=== PATIENT | male | born 1940 | race Caucasian/White ===

== ENCOUNTER 2018-07-02 08:14 | Observation (INO) ==
[2018-07-02] MEDS ORDERED: Naloxone 0.4 MG/ML INJ IVP PRN (11:03)
--- NOTE | 2018-07-02 13:28 | Internal Med History&Physical ---
Date of Encounter: 07/02/18 Time of Encounter: 13:00 Internal Medicine - H&P: HPI Chief complaint: Witnessed seizure History of present illness: Mr. 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 His notes around 4am, she woke up next to him and observed him with his eyes closed and both arms shaking across the chest. This went on for like 10minutes, and he was unresponsive and unarousable during this episode. After the episode , he was confused and was unable to recall the event. Denies any tongue biting or urinary or fecal incontinence. She also notes that for about a week, he has been having frequent runny to loose stools. He recently completed a course of chemotherapy for his esophageal adenocarcinoma. He went to [facility] ER, where he was also noted to be pancytopenic. He got one dose of vancomycin and was loaded with Keppra and transferred here for further management Past Med Surg Social Fam HX - Past Medical History Medical history: arthritis, cancer, COPD, hypertension, liver disease Additional medical history: IVC FILTER Psychiatric history: no psych history - Past Surgical History Surgical History: herniorrhaphy, splenectomy, other Additional surgical history: TURP - Social History Smoking Status: Former smoker Smokeless Tobacco Status: No Alcohol use: none Drug use: none Internal Medicine - H&P: Meds HYDROcodone/Acet 5/325 mg [[place] 5-325 mg] 1 tab PO Q4HR PRN 07/02/18 [History] Nadolol 10 mg PO QPM 07/02/18 [History] Simethicone [Gas-X] 80 mg PO TID PRN 07/02/18 [History] 3 Allergy/AdvReac Type Severity Reaction Status Date / Time aspirin [ASA] AdvReac See Verified 07/02/18 17:42 Comments Warfarin [From Coumadin] AdvReac See Verified 07/02/18 17:42 Comments All Systems PM: A 10-system review of systems was performed and is negative for pertinent findings except as documented above in the HPI. - Constitutional Constitutional: no chills, no fever(s), no night sweats - EENT Eyes: no change in vision, no discharge, no pain, no photophobia Ears: no ear discharge, no ear pain, no tinnitus Nose, mouth and throat: no dysphagia, no nasal discharge, no neck pain, no sore throat - Cardiovascular Cardiovascular ROS IM: no chest pain, no diaphoresis, no dyspnea, no lightheadedness, no palpitations, no syncope - Respiratory Respiratory: no cough, no dyspnea, no wheezing, no excessive phlegm production - Gastrointestinal Gastrointestinal: diarrhea, no abdominal pain, no hematemesis, no hematochezia, no melena, no nausea, no vomiting - Musculoskeletal Musculoskeletal ROS IM: no numbness, no tingling - Integumentary Integumentary IM: no rash, no unusual bruising - Neurological Neurological ROS: confusion, no convulsions, no focal weakness, no numbness, no tingling, no tremor(s) - Hematologic/Lymphatic Hematologic/Lymphatic: no easy bruising - Constitutional Vitals: Pulse Resp BP Pulse Ox 83 17 130/79 96 07/02/18 10:31 07/02/18 10:31 07/02/18 10:31 07/02/18 10:31 General appearance: Present: cachectic, underweight Exam: NAD. Cachectic elderly male - Head Head exam: Present: atraumatic, normocephalic - Eye Eye exam: Present: PERRL, conjuntiva pink, sclera anicteric Pupils: Present: PERRL - Neck Neck exam general surgery: Present: supple, trachea midline. Absent: lymphadenopathy - Respiratory Respiratory exam: Present: CTAB. Absent: accessory muscle use, rales, rhonchi, wheezes - Cardiovascular Cardiovascular exam: Present: RRR, +S1, +S2. Absent: diastolic murmur, gallop, rubs, systolic murmur - GI/Abdominal GI/Abdominal exam: Present: normal bowel sounds, soft, no peritoneal signs. Absent: distended, tenderness - Extremities Exam Extremities exam: Present: warm, radial pulses palpable and symmetrical. Absent : calf tenderness, cyanotic, pedal edema - Neurological Exam Neurological exam: Present: CN II-XII intact, oriented X3, no focal deficits. Absent: pronater drift, facial droop, speech deficit - Skin Skin exam: Present: dry, intact Internal Med - H&P Results - Labs CBC & Chem 7: 07/02/18 11:27 - Assessment and plan (1) Seizure Current Visit: Yes Status: Acute Assessment and plan: Pt noted to have episode of shaking extremities and unresponsiveness of about 10minutes duration with postictal state afterwards Currently alert and oriented x3. Neurology consulted. Patient has been loaded with keppra and will continue on keppra 500mg IV BID Plan for EEG. Follow neuro recs (2) Thrombocytopenia Current Visit: Yes Status: Acute Assessment and plan: See plan for pancytopenia. Likely side effect of chemotherapy, however may call hematology back if platelets continue to drop for now, monitor CBC. Repeat CBC was 21. Hematology contacted and said likely side effect of chemo Transfuse for platelet less than 10 (3) Diarrhea Current Visit: Yes Status: Acute Assessment and plan: Pt has had reported one week of loose stools and multiple daily episodes of diarrhea. CT abdomen on 06/30 showed some mild bowel thickening. Will start on cipro and flagyl,(also in light of leukopenia), send stool studies for c diff and obtain GI panel Continue on IV fluids Qualifiers: Qualified Code(s): R19.7 - Diarrhea, unspecified (4) Esophageal adenocarcinoma Current Visit: Yes Status: Acute Assessment and plan: Pt is on palliative chemotherapy and received one cycle last week. Stable outpatient follow up (5) Esophageal varices Current Visit: Yes Status: Acute Assessment and plan: Stable. continue beta blockers Qualifiers: Qualified Code(s): I85.00 - Esophageal varices without bleeding (6) Pancytopenia Current Visit: Yes Status: Acute Assessment and plan: PAtient noted to have lekopenia and thrombocytopenia at 30 which was low compared to his previous 137 a month ago on his paper records with his daughter Discussed with hematology , may likely be related to chemotherapy, repeat CBC and monitor. However patient is immunosuppressed and is a sepsis risk and has diarrhea, so he has been started empirically on antibiotics Follow up stool and blood cultures (7) DVT prophylaxis Current Visit: Yes Status: Acute Assessment and plan: sCD - Time Spent With Patient Total time spent is greater than 50% in coordination of care (as documented) at patient's floor/unit and/or counseling patient:
[2018-07-02 13:40] LABS: Nucleated Red Blood Cells 3.5 /100 WBC (0)
[2018-07-02 13:41] LABS: Hematocrit 34.5 % (37.5-50.1); Hemoglobin 11.2 g/dL (12.9-16.9); Lymphocytes # 0.9 K/mcL (0.6-4.6); Mean Corpuscular HGB Conc 32.5 g/dL (31.6-35.5); Mean Corpuscular Hemoglobin 29.7 pg (28.0-33.3); Mean Corpuscular Volume 91.5 fL (83.0-100.0); Red Blood Count 3.77 M/mcL (4.19-5.50); Red Cell Distribution Width 21.4 % (11.5-14.5)
[2018-07-02 13:57] LABS: Platelet Count 21 K/mcL (140-400)
[2018-07-02] MEDS ORDERED: 0.9 % Sodium Chloride 1,000 ML IVC SCH (14:00)
[2018-07-02 14:40] LABS: Monocytes # 0.1 K/mcL (0.0-1.3); Neutrophils # 0.3 K/mcL (1.6-8.9); Platelet Estimate Marked Decrease (Normal)
--- NOTE | 2018-07-02 15:14 | Neurology - Consult Note ---
<Byron Bennett P - Last Filed: 07/02/18 17:08> Date of Encounter: 07/02/18 Time of Encounter: 03:45 Assessment and Plan (1) Seizure Current Visit: Yes Status: Acute The patient has witnessed seizure attack for the first time He is on Chemo therapy for Ca Oesophagus, Got Chemo last week He is on IV Levetirecetam 500 Mg TID Plan : continue oral Levetriacetam after discharge Seizure precaution History of Present Illness Chief complaint: Seizure disorder HPI: Mr. Mcclure is a 78 year old male with past diagnoses of hypertension, esophageal varices, BPH, invasive adenocarcinoma of the distal esophagus under chemtherapy( last episode of chemotherapy last week) admitted in [facility] via ED for witnessed seizure like activities . As per his , she observed his eyes closed and both arms shaking across the chest lasted for about 10 minutes . He went to post ictal confusion state after seizure attack lasted for about half hour. He denies any tongue biting or urinary or fecal incontinence. He had flu like symptoms a week before and has received chemo recently. He is on Levetiracetam 500 mg IV 8hourly since admission and no longer has had seizure in the past . He doesnot have any seizure after admission . . Vitals 83, 130/79, 96% WBC 1.4 , neutrophil 24 Hb 11.2 , platelets 21 Past Med Surg Social Fam HX - Past Medical History Medical history: arthritis, cancer, COPD, hypertension, liver disease Additional medical history: IVC FILTER Psychiatric history: no psych history - Past Surgical History Surgical History: herniorrhaphy, splenectomy, other Additional surgical history: TURP - Social History Smoking Status: Former smoker Smokeless Tobacco Status: No Alcohol use: none Drug use: none Medications and Allergies Nadolol [Corgard] 10 mg PO DAILY 01/15/18 [History] HYDROcodone/Acet 5/325 mg [[place] 5-325 mg] 1 tab PO Q4HR PRN 07/02/18 [History] 3 Allergy/AdvReac Type Severity Reaction Status Date / Time aspirin [ASA] Allergy See Verified 01/30/18 14:48 Comments Warfarin [From Coumadin] Allergy See Verified 01/15/18 16:14 Comments All Systems: The remainder of the systems were reviewed and are negative Physical Examination - Vital Signs Vital Signs: Initial Vital Signs Pulse Resp BP Pulse Ox 83 17 130/79 96 07/02/18 10:31 07/02/18 10:31 07/02/18 10:31 07/02/18 10:31 - Constitutional General appearance: chronically ill - Neurologic Sensorimotor examination: intact Detailed motor examination: full strength in all major muscle groups Motor examination - right side: 5: deltoids, biceps, triceps, wrist flexion, wrist extension, route relief driver, hip flexors, tibialis Anterior, quadriceps, toe extension (EHL), plantarflexion Motor examination - left side: 02/21: deltoids, biceps, triceps, wrist flexion, wrist extension, hip flexors, route relief driver, quadriceps, tibialis Anterior, toe extension (EHL), plantarflexion Detailed sensory examination: intact Reflex and gait examination: normal gait Reflexes: Biceps: 2+, Triceps: 2+, Brachioradialis: 2+, Patella: 2+, Achilles: 2 + Mental Status Examination: awake, alert, oriented to person, oriented to place, oriented to time, follows commands appropriately, answers questions appropriately, no aphasia Cranial nerve examination: PERRL, EOMI, visual mendieta intact, sensory to face intact, no facial asymmetry is present Cerebellar examination: no dysmetria, performs finger to nose and heel to clemente symmetrically without ataxia, no gait ataxia Results - Laboratory Findings CBC and BMP: 07/02/18 11:27 Abnormal lab findings: Abnormal lab results WBC 1.4 K/mcL (4.3-11.1) L 07/02/18 11:27 RBC 3.77 M/mcL (4.19-5.50) L 07/02/18 11:27 Hgb 11.2 g/dL (12.9-16.9) L 07/02/18 11:27 Hct 34.5 % (37.5-50.1) L 07/02/18 11:27 RDW 21.4 % (11.5-14.5) H 07/02/18 11:27 Plt Count 21 K/mcL (140-400) L* 07/02/18 11:27 Neutrophils # 0.3 K/mcL (1.6-8.9) L 07/02/18 11:27 Nucleated RBCs/100 WBC 3.5 /100 WBC (0) H 07/02/18 11:27 Platelet Estimate Marked Decrease (Normal) L 07/02/18 11:27 Consult Discharge Plan - Plan Referrals: Basim Monzon MD [Primary Care Provider] - <Mir Ervin I - Last Filed: 07/02/18 17:19> Date of Encounter: 07/02/18 Assessment and Plan (1) Seizure Current Visit: Yes Status: Acute Pt was seen and examined, my medical decision was reviewed with the Resident Physician, I agree with the documented findings, disposition and treatment plas as described except to the extent set forth below This is a 78 years old male who has history of seizures in the past about 4-5 years ago had to convulsive seizures and was on Dilantin for some time but later on it was discontinued as his seizures has resolved and his workup was negative. Now patient seemed to have another witnessed seizure. 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 difficile I suspect that all his recent illnesses and condition may have triggered this seizure as he did have a seizure potential in the past but did not have any for quite some time. Regardless I suggest that he should continue on Keppra I would recommend decreasing the dose to 500 mg twice a day[address] of the head is been negative for any metastatic disease or any other acute abnormality currently no focal deficit on his examination. Other treatment is as per primary team. Detailed discussion with the patient and the family explained and answered all the questions Mir Ervin MD History of Present Illness HPI: Mr. Mcclure is a 78 year old male All Systems: The remainder of the systems were reviewed and are negative Physical Examination - Vital Signs Vital Signs: Initial Vital Signs Pulse Resp BP Pulse Ox 83 17 130/79 96 07/02/18 10:31 07/02/18 10:31 07/02/18 10:31 07/02/18 10:31 Results - Laboratory Findings CBC and BMP: 07/02/18 11:27 Abnormal lab findings: Abnormal lab results WBC 1.4 K/mcL (4.3-11.1) L 07/02/18 11:27 RBC 3.77 M/mcL (4.19-5.50) L 07/02/18 11:27 Hgb 11.2 g/dL (12.9-16.9) L 07/02/18 11:27 Hct 34.5 % (37.5-50.1) L 07/02/18 11:27 RDW 21.4 % (11.5-14.5) H 07/02/18 11:27 Plt Count 21 K/mcL (140-400) L* 07/02/18 11:27 Neutrophils # 0.3 K/mcL (1.6-8.9) L 07/02/18 11:27 Nucleated RBCs/100 WBC 3.5 /100 WBC (0) H 07/02/18 11:27 Platelet Estimate Marked Decrease (Normal) L 07/02/18 11:27
[2018-07-02 16:34] LABS: Adenovirus F 40/41 PCR Not detected (Not detect); Astrovirus PCR Not detected (Not detect); C.difficile Toxin A/B by PCR Not detected (Not detect); Campylobacter by PCR Not detected (Not detect); Cryptosporidium by PCR Not detected (Not detect); Cyclospora cayetanensis PCR Not detected (Not detect); E. coli O157 by PCR Not detected (Not detect); Entamoeba histolytica PCR Not detected (Not detect); Enteroaggregative E.coli(EAEC) Not detected (Not detect); Enteropathogenic E.coli(EPEC) Not detected (Not detect); Enterotoxigenic E.coli (ETEC) Not detected (Not detect); Giardia lamblia PCR Not detected (Not detect); Norovirus GI/GII PCR Not detected (Not detect); Plesiomonas shigelloides PCR Not detected (Not detect); Rotavirus A PCR Not detected (Not detect); Salmonella PCR Not detected (Not detect); Sapovirus PCR Not detected (Not detect); Shig/EnteroinvasiveE coli EIEC Not detected (Not detect); Shigalike tox-prod E coli STEC Not detected (Not detect); Vibrio PCR Not detected (Not detect); Vibrio cholerae PCR Not detected (Not detect); Yersinia enterocolitica PCR Not detected (Not detect)
[2018-07-02] MEDS: MetroNIDAZOLE 500 MG/100 ML 500 MG/100 ML BAG IVPB SCH ×2 (16:54→20:46)
[2018-07-03] MEDS: MetroNIDAZOLE 500 MG/100 ML 500 MG/100 ML BAG IVPB SCH (04:36)
[2018-07-03 05:08] LABS: Basophils % 0.6 %
[2018-07-03 05:10] LABS: Eosinophils # 0.1 K/mcL (0.0-0.6); Hematocrit 35.2 % (37.5-50.1); Hemoglobin 11.5 g/dL (12.9-16.9); Lymphocytes # 0.9 K/mcL (0.6-4.6); Lymphocytes % 55.2 %; Mean Corpuscular HGB Conc 32.7 g/dL (31.6-35.5); Mean Corpuscular Hemoglobin 30.2 pg (28.0-33.3); Mean Corpuscular Volume 92.4 fL (83.0-100.0); Monocytes # 0.4 K/mcL (0.0-1.3); Monocytes % 21.8 %; Neutrophils # 0.3 K/mcL (1.6-8.9); Nucleated Red Blood Cells 9.1 /100 WBC (0); Red Blood Count 3.81 M/mcL (4.19-5.50); Red Cell Distribution Width 21.4 % (11.5-14.5); Segmented Neutrophils % 19.4 %
[2018-07-03 05:25] LABS: BUN/Creatinine Ratio 30 (6-26); Blood Urea Nitrogen 17 mg/dL (8-23); Calcium 8.3 mg/dL (8.6-10.3); Carbon Dioxide 25 mEq/L (23-29); Chloride 109 mEq/L (98-107); Glucose 100 mg/dL (70-105); Magnesium 1.7 mg/dL (1.6-2.6); Osmolality,Calculated 294 (280-300); Phosphorous 2.6 mg/dL (2.7-4.5); Potassium 3.2 mEq/L (3.5-5.1); Sodium 141 mEq/L (136-145); eGFR For Non-African Americans > 60 (> 60)
[2018-07-03 05:34] LABS: Platelet Count 23 K/mcL (140-400)
[2018-07-03 06:05] LABS: Hypochromasia Present (Not Present)
[2018-07-03 06:06] LABS: Anisocytosis 2+ (Not Present); Platelet Estimate Marked Decrease (Normal); Tear Drop Cells 2+ (Not Present)
[2018-07-03 08:07] VITALS: BP 134/89
[2018-07-03] MEDS ORDERED: Potassium Chloride Elixir 20 MEQ/15 ML UDC PO ONE (09:51)
--- NOTE | 2018-07-03 09:55 | Discharge Summary ---
- NOTES TO OUTPATIENT PROVIDER Notes to Outpatient Provider: New start seizure meds keppra 500mg po bid. Seizure precaution. Orders not resulted at time of discharge: Pending orders 07/02/18 13:45 Culture,Blood [BC] Routine Date of Encounter: 07/03/18 Time of Encounter: 09:00 - Discharge Diagnosis (1) Esophageal adenocarcinoma Priority: Secondary Status: Acute (2) Diarrhea Priority: Primary Status: Acute Qualifiers: Qualified Code(s): R19.7 - Diarrhea, unspecified (3) Seizure Priority: Primary Status: Acute (4) DVT prophylaxis Priority: Secondary Status: Acute (5) Esophageal varices Priority: Secondary Status: Acute Qualifiers: Qualified Code(s): I85.00 - Esophageal varices without bleeding (6) Pancytopenia Priority: Secondary Status: Acute (7) Thrombocytopenia Priority: Secondary Status: Acute Hospital course: Mr. Mcclure is a 78 year old male presented to emergency room for witnessed seizure. Past medical history is significant for history of CVA, esophagus carcinoma on chemotherapy. Patient was treated with Keppra IV. Patient has no further seizure overnight. Neurology has seen patient, recommended switch to by mouth keppra. Patient was seen and examined. Awake alert, oriented 3. No confusion. Vitals are stable. Still some loose stool, C. difficile test negative. Discussed with patient and family, patient has good family support. Plan is to discharge patient home and resume previous care level, seizure precaution, by mouth Keppra 500 mg twice a day and the follow-up with neurology as outpatient. Will continue by mouth Cipro and Flagyl for another 3 days for colitis. Patient will continue follow-up with oncology for chemotherapy. Patient has mild hypokalemia, by mouth liquid form potassium supplement was given and the patient will follow-up with PCP to follow potassium level. All question was answered, patient and the family shows understanding. Discharge discussed with: patient, family - Time Spent with Patient Total time spent providing and/or coordinating discharge services: 25 min Less than 30 minutes - Discharge Medications Home Medications: HYDROcodone/Acet 5/325 mg [[place] 5-325 mg] 1 tab PO Q4HR PRN 07/02/18 [History] Nadolol 10 mg PO QPM 07/02/18 [History] Simethicone [Gas-X] 80 mg PO TID PRN 07/02/18 [History] Ciprofloxacin HCl [Cipro] 250 mg PO BID #6 tab 07/03/18 [Rx] LevETIRAcetam [Keppra] 500 mg PO BID #60 tablet 07/03/18 [Rx] metroNIDAZOLE [Flagyl] 500 mg PO TID #9 tablet 07/03/18 [Rx] Allergies/Adverse Reactions: 3 Allergy/AdvReac Type Severity Reaction Status Date / Time aspirin [ASA] AdvReac See Verified 07/02/18 17:42 Comments Warfarin [From Coumadin] AdvReac See Verified 07/02/18 17:42 Comments Date of admission: 07/02/18 10:28 Primary care physician: Basim Monzon MD Consults: 07/02/18 11:26 Consult to Neurology [CONS] Routine Consulting Provider: Neurology [facility] Reason for Consult: seizures Call Completed: Yes 07/02/18 12:27 Consult to Nutrition [CONS] Routine Comment: Consulting Provider: NUTRITION Reason for Dietary Consult: MST Score Consult to Glass [employer] [CONS] Routine Reason for SW Consult: HAS SRIKANTH Ladera Labs 07/02/18 14:22 Consult to Oncology Hematology [CONS] Routine Consulting Provider: Clementine Clemens Reason for Consult: thrombocytopenia with acute drop Call Completed: Yes Discharging clinician: Heidi Roberts Anticipated date of discharge: 07/03/18 - Constitutional Vitals: Temp Pulse Resp BP Pulse Ox 97.5 F L 75 20 134/89 97 07/03/18 08:03 07/03/18 08:03 07/03/18 08:03 07/03/18 08:03 07/03/18 08:03 General appearance: Present: cachectic, A&O X 3, no acute distress, underweight , answers questions appropriately Exam: In NAD - Head Head exam: Present: atraumatic, normocephalic - Eye Eye exam: Present: PERRL, conjuntiva pink, sclera anicteric Pupils: Present: PERRL - Neck Neck exam general surgery: Present: supple, trachea midline. Absent: lymphadenopathy - Respiratory Respiratory exam: Present: CTAB. Absent: accessory muscle use, rales, rhonchi, wheezes - Cardiovascular Cardiovascular exam: Present: RRR, +S1, +S2. Absent: diastolic murmur, gallop, rubs, systolic murmur - GI/Abdominal GI/Abdominal exam: Present: normal bowel sounds, soft, no peritoneal signs. Absent: distended, tenderness - Extremities Exam Extremities exam: Present: warm, radial pulses palpable and symmetrical. Absent : calf tenderness, cyanotic, pedal edema - Neurological Exam Neurological exam: Present: CN II-XII intact, oriented X3, no focal deficits. Absent: pronater drift, facial droop, speech deficit - Skin Skin exam: Present: dry, intact - Patient Status Disposition: Home Health Service Condition: Good Functional capacity at discharge: uses cane/walker Overall status at discharge: patient is back to baseline - Discharge Instructions Follow Up With: Basim Monzon MD [Primary Care Provider] - Mir Ervin MD [Partnered Physician] - 07/10/18
--- NOTE | 2018-07-03 10:09 | Physician Discharge Referral ---
Home Health/Hosp Referral Info Transfer to: Home Health Provider in Charge Post Discharge: PCP - Diagnosis (1) Esophageal adenocarcinoma Status: Acute (2) Diarrhea Status: Acute (3) Seizure Status: Acute (4) DVT prophylaxis Status: Acute (5) Esophageal varices Status: Acute (6) Pancytopenia Status: Acute (7) Thrombocytopenia Status: Acute - Respiratory Orders Smoking Cessation: Smoking cessation has been advised. For more information, call the [employer] Tobacco Quit Line at 4-245-JYJX-NOW. - Diet/Nutrition Diet/Nutrition Orders: Regular - Services Needed Following services are medically necessary services: Nursing, Home Health Aide, Physical Therapy, Occupational Therapy - Transfer Medications Prescriptions: Ciprofloxacin HCl [Cipro] 250 mg PO BID #6 tab LevETIRAcetam [Keppra] 500 mg PO BID #60 tablet metroNIDAZOLE [Flagyl] 500 mg PO TID #9 tablet Home Medications: HYDROcodone/Acet 5/325 mg [[place] 5-325 mg] 1 tab PO Q4HR PRN 07/02/18 [History] Nadolol 10 mg PO QPM 07/02/18 [History] Simethicone [Gas-X] 80 mg PO TID PRN 07/02/18 [History] Ciprofloxacin HCl [Cipro] 250 mg PO BID #6 tab 07/03/18 [Rx] LevETIRAcetam [Keppra] 500 mg PO BID #60 tablet 07/03/18 [Rx] metroNIDAZOLE [Flagyl] 500 mg PO TID #9 tablet 07/03/18 [Rx] Allergies/Adverse Reactions: 3 Allergy/AdvReac Type Severity Reaction Status Date / Time aspirin [ASA] AdvReac See Verified 07/02/18 17:42 Comments Warfarin [From Coumadin] AdvReac See Verified 07/02/18 17:42 Comments Certification: Further, I certify that my clinical findings support that this patient is homebound (i.e. absences from home require considerable and taxing effort and are for medical reasons or quaker services or infrequently or short duration when for other reasons) because: Homebound Reason: Patient requires assistance of a person or device to safely leave home Attestation: My signature below is to certify that this patient is under my care and that I, or nurse practitioner, or a physician's assistant professor of music working with me, has a face-to -face encounter with this patient.
--- NOTE | 2018-07-03 11:50 | Neurology Progress Note ---
Date of Encounter: 07/03/18 Time of Encounter: 08:35 Assessment and Plan (1) Seizure Current Visit: Yes Status: Acute I suggest that he should continue on Keppra I would recommend decreasing the dose to 500 mg twice a day[address] of the head is been negative for any metastatic disease or any other acute abnormality currently no focal deficit on his examination. Other treatment is as per primary team. Detailed discussion with the patient and the family explained and answered all the questions Okay to discharge from neurology standpoint follow-up in 3-4 weeks in the neurology outpatient clinic if needed Mir Ervin MD Subjective Interval history: Patient is a stable no further seizures back to the baseline Objective - Constitutional Vitals: Temp Pulse Resp BP Pulse Ox 97.5 F L 75 20 134/89 97 07/03/18 08:03 07/03/18 08:03 07/03/18 08:03 07/03/18 08:03 07/03/18 08:03 - Neurological Exam Sensorimotor examination: Present: intact Motor Examination: Present: full strength in all major muscle groups Motor examination - left side: 5/5: deltoids, biceps, triceps, wrist flexion, wrist extension, hip flexors, chief hydroelectric station operator, quadriceps, tibialis Anterior, toe extension (EHL), plantarflexion Sensation intact: Present: intact Reflex and gait examination: normal gait Mental Status Examination: Present: awake, alert, oriented to person, oriented to place, oriented to time, follows commands appropriately, answers questions appropriately, no aphasia Cranial nerve examination: Present: PERRL, EOMI, visual mendieta intact, sensory to face intact, no facial asymmetry is present Cerebellar examination: Present: no dysmetria, performs finger to nose and heel to clemente symmetrically without ataxia, no gait ataxia Results - Laboratory Findings CBC and BMP: 07/03/18 04:58 07/03/18 04:58 Abnormal lab findings: Abnormal lab results WBC 1.7 K/mcL (4.3-11.1) L 07/03/18 04:58 RBC 3.81 M/mcL (4.19-5.50) L 07/03/18 04:58 Hgb 11.5 g/dL (12.9-16.9) L 07/03/18 04:58 Hct 35.2 % (37.5-50.1) L 07/03/18 04:58 RDW 21.4 % (11.5-14.5) H 07/03/18 04:58 Plt Count 23 K/mcL (140-400) L* 07/03/18 04:58 Neutrophils # 0.3 K/mcL (1.6-8.9) L 07/03/18 04:58 Nucleated RBCs/100 WBC 9.1 /100 WBC (0) H 07/03/18 04:58 Platelet Estimate Marked Decrease (Normal) L 07/03/18 04:58 Hypochromasia Present (Not Present) A 07/03/18 04:58 Anisocytosis 2+ (Not Present) A 07/03/18 04:58 Tear Drop Cells 2+ (Not Present) A 07/03/18 04:58 Potassium 3.2 mEq/L (3.5-5.1) L 07/03/18 04:58 Chloride 109 mEq/L (98-107) H 07/03/18 04:58 Creatinine 0.56 mg/dL (0.70-1.30) L 07/03/18 04:58 BUN/Creatinine Ratio 30 (6-26) H 07/03/18 04:58 Calcium 8.3 mg/dL (8.6-10.3) L 07/03/18 04:58 Phosphorus 2.6 mg/dL (2.7-4.5) L 07/03/18 04:58 Consult Discharge Plan - Plan Referrals: Basim Monzon MD [Primary Care Provider] - 07/08/18 10:00 am Mir Ervin MD [Partnered Physician] - 07/10/18 Prescriptions: Ciprofloxacin HCl [Cipro] 250 mg PO BID #6 tab LevETIRAcetam [Keppra] 500 mg PO BID #60 tablet metroNIDAZOLE [Flagyl] 500 mg PO TID #9 tablet
== END 2018-07-03 14:07 | disposition home health service (06) ==
LOC: 2NENU
PROVIDERS: ADMIT Student in an Organized Health Care Education/Training Program; ATTEND Student in an Organized Health Care Education/Training Program